=== PATIENT | male | born 1995 | race American Indian/Alaskan Native ===

== ENCOUNTER 2017-07-17 19:54 | Emergency (ER) | payer OTHER ==
[2017-07-17 20:10] VITALS: BP 150/85; PULSE 82; RESP 16; TEMP 98.1; O2SAT 100
--- NOTE | 2017-07-17 20:31 | C.PDOC ---
History Of Present Illness 21 yo male come in for evaluation of Right hand pain, swelling, deformity noted since early today after sustained injury at work. Pt sts, " heavy metal plate hit the hand at work". Pt sts, unable to completely close the Right hand due to pain. Otherwise, pt denies weakness, sensory or vascular deficits to Right hand. Pt admits, previous injury to Right hand. Ambulate to Ed for evaluation, not in any apparent distress. (Jeni Ramirez) History Per: Patient Onset/Duration Of Symptoms: Sudden Onset Time Seen by Provider: 07/17/17 20:16 Chief Complaint (Nursing): Finger,Hand,&Wrist Past Medical History Reviewed: Historical Data, Nursing Documentation, Vital Signs - Medical History PMH: Asthma Surgical History: No Surg Hx Family History: States: No Known Family Hx - Social History Hx Alcohol Use: No Hx Substance Use: No - Immunization History Hx Tetanus Toxoid Vaccination: Yes Hx Influenza Vaccination: No Hx Pneumococcal Vaccination: No Vital Signs: Last Vital Signs Temp 98.1 F 07/17/17 20:06 Pulse 82 07/17/17 20:06 Resp 16 07/17/17 20:06 BP 150/85 07/17/17 20:06 Pulse Ox 100 07/18/17 04:02 Review Of Systems Except As Marked, All Systems Reviewed And Found Negative. Musculoskeletal: Positive for: Hand Pain Skin: Negative for: Bruising Neurological: Negative for: Weakness, Numbness Physical Exam - Physical Exam Appears: Well, Non-toxic, No Acute Distress Skin: Normal Color, Warm, No Rash Head: Normacephalic Extremity: Normal ROM (Right hand), Tenderness (Right hand tenderness over dorsal asepct overlying 4th-5th MCB, mild edema. NO palpable deformity), Capillary Refill (less than 2sec), No Deformity Neurological/Psych: Oriented x3, Normal Speech, Normal Motor, Normal Sensation, Normal Reflexes ED Course And Treatment O2 Sat by Pulse Oximetry: 100 - Other Rad RIGHT HAND X-Ray: Read By Radiologist Interpretation: (+) angulated fx of proximal aspect 5th MCB Progress Note: On re-evaluation, pt is afebrile, hemodynamicaly stable. Non- toxic. Right hand: (+) mild deformity dorsal asepct over 5th MCB, no skin changes, no neurovascular deficits. Xray review and c/w angulated fx of proximal aspect 5th MCB. Fiberglass splint applied. Pt advised to F/u with hand specialsit in 2-3 days for re-evaluation. return to ED if any worsening or new changes. Orthopedic Time Performed: 20:50 Time Out: Side verified, Site verified, Patient ID confirmed Procedure: Splint Location: Right, Hand Consent obtained: Verbal Performed by: Mid-level Provider Diagnosis: Fracture Type: Closed, Angulated Location: Right Bone: Metacarpal, 5th Other:: ulnar gutter (Jeni Ramirez) Disposition Counseled Patient/Family Regarding: Studies Performed, Diagnosis, Need For Followup, Rx Given - Disposition Disposition Time: 20:59 - Disposition Referrals: Dorina Stark MD [Staff Provider] - [employer] [facility] [place] [Outside] [facility] [Outside] Disposition: HOME/ ROUTINE Condition: STABLE Additional Instructions: SPLINT UNTIL RE-EVALUATED BY HAND SPECIALIST TAKE PAIN MEDICATION NEED FOR PAIN FOLLOW UP WITH ORTHOPEDIST IN 2-3 DAYS FOR RE-EVALUATION. RETURN TO ED IF ANY WORSENING OR NEW CHANGES FYI: IF UNABLE TO SEE HAND SPECIALIST, FOLLOW UP WITH [facility] (Thursday) FOR RE-EVALUATION. CALL [facility] TO HELP TO SCHEDULED APPOINTMENT. Prescriptions: traMADol [Ultram] 50 mg PO TID #7 tab Instructions: Hand Fracture (ED) Forms: [employer] (Bulgarian), Work Excuse - Clinical Impression Clinical Impression: Hand fracture
--- NOTE | 2017-07-18 09:45 | RAD ---
PROCEDURE: Right Hand Radiographs. HISTORY: injury COMPARISON: None. FINDINGS: BONES: Boxer fracture metacarpal with palmar and mild radial angulation of the distal fragment and surrounding soft tissue swelling JOINTS: Joint spaces preserved. No significant osteoarthritis SOFT TISSUES: As above. OTHER FINDINGS: None. IMPRESSION: Boxer fracture 5th metacarpal with palmar and slight radial angulation of the distal fragment with overlying soft tissue swelling
== END 2017-07-17 21:49 | disposition home or self-care (01) ==
LOC: C.ER 19:54
DX: S62.396A Other fracture of fifth metacarpal bone, right hand, initial encounter for closed fracture (principal); W22.8XXA Striking against or struck by other objects, initial encounter; Y92.89 Other specified places as the place of occurrence of the external cause; Y99.0 Civilian activity done for income or pay